=== PATIENT | male | born 1935 | race Caucasian/White ===

== ENCOUNTER 2021-12-11 10:36 | Emergency (ER) | payer MEDICARE ==
[2021-12-11 11:39] LABS: Appearance,Urine Clear (Clear); Bilirubin,Urine Negative (Negative); Blood,Urine Negative (Negative); Color,Urine Yellow; Glucose,Urine (UA) Negative (Negative); Ketones,Urine Negative (Negative); Leukocyte Esterase,Urine Moderate (Negative); Mucus,Urine Moderate /hpf; Nitrite,Urine Negative (Negative); Protein,Urine Trace (Negative); Specific Gravity,Urine 1.028 (1.001-1.035); Squamous Epithelial Cell,Urine <1 /hpf (0-4); Urobilinogen,Urine <2.0 mg/dL (<2.0); WBC,Urine 11 /hpf (0-5)
[2021-12-11 11:46] LABS: Cocaine Screen,Urine Not Detected (NotDetected); Phencyclidine Screen,Urine Not Detected (NotDetected); Urn Cannabinoid Scrn Not Detected (NotDetected)
[2021-12-11 11:47] LABS: Amphetamine Screen,Urine Not Detected (NotDetected); Barbiturate Screen,Urine Not Detected (NotDetected); Benzodiazepines Screen,Urine Detected (NotDetected); Methadone Screen, Urine Not Detected (NotDetected); Opiate Screen,Urine Not Detected (NotDetected); Oxycodone Screen, Urine Not Detected (NotDetected); Tricyclic Antidepressant,Urine Detected (NotDetected)
[2021-12-11 11:51] LABS: Basophils # (A) 0.1 k/uL (0-0.2); Basophils % (A) 1 %; Eosinophils # (A) 0.2 k/uL (0-0.7); Eosinophils % (A) 2 %; HGB 11.9 gm/dL (13.0-17.5); Lymphocytes # (A) 2.2 k/uL (1.0-4.8); Lymphocytes % (A) 23 %; MCH 31.9 pg (25.0-35.0); MCHC 33.1 g/dL (31.0-37.0); MCV 96.2 fL (80.0-100.0); Mean Platelet Volume 7.9; Monocytes # (A) 0.5 k/uL (0-1.0); Monocytes % (A) 6 %; Neutrophils # (A) 6.2 k/uL (1.3-7.7); Neutrophils % (A) 67 %; Platelet Count 221 k/uL (150-450); RBC 3.75 m/uL (4.30-5.90); RDW 14.5 % (11.5-15.5); WBC 9.3 k/uL (3.8-10.6)
[2021-12-11 12:01] LABS: Albumin 3.5 g/dL (3.5-5.0); Calcium 8.5 mg/dL (8.4-10.2); Total Bilirubin 0.5 mg/dL (0.2-1.3); Total Protein 6.5 g/dL (6.3-8.2)
[2021-12-11 12:21] LABS: Potassium 3.6 mmol/L (3.5-5.1)
[2021-12-11 12:35] VITALS: BP 117/66; PULSE 57; RESP 14; TEMP 98
--- NOTE | 2021-12-11 13:03 | ED ---
Altered Mental Status HPI - General Chief Complaint: Altered Mental Status Stated Complaint: altered Time Seen by Provider: 12/11/21 10:55 Source: patient, EMS Mode of arrival: EMS Limitations: altered mental status - History of Present Illness Initial Comments: This 86-year-old male with a history of dementia presenting to the emergency department from his assisted living community for increased aggression. He resides in a memory care unit. Patient has no complaints at this time and states "I think I'm perfectly fine". He was brought by EMS and is a poor historian. She denies chest pain, shortness of breath, cough, abdominal pain, dysuria, dizz iness, fall or head injury, nausea, vomiting, fever, chills, palpitations, diarrhea, constipation, hematuria, hematemesis, hematochezia, hemoptysis. - Related Data Home Medications Medication Instructions Recorded Confirmed ALPRAZolam [Xanax] 0.25 mg PO BID PRN 12/11/21 12/11/21 Ascorbic Acid [Vitamin C] 500 mg PO BID 12/11/21 12/11/21 Cholecalciferol [Vitamin D3 (125 250 mcg PO DAILY 12/11/21 12/11/21 Mcg = 5000 Iu)] Divalproex ER [Depakote ER] 250 mg PO HS 12/11/21 12/11/21 Docusate [Colace] 100 mg PO DAILY PRN 12/11/21 12/11/21 Donepezil [Aricept] 10 mg PO BID 12/11/21 12/11/21 L.acidoph,Paracasei, B.lactis 1 cap PO DAILY 12/11/21 12/11/21 [Probiotic] Melatonin 6 mg PO HS 12/11/21 12/11/21 Memantine [Namenda] 10 mg PO BID 12/11/21 12/11/21 Pyridoxine HCl (Vitamin B6) 100 mg PO DAILY 12/11/21 12/11/21 [Vitamin B-6] QUEtiapine [SEROquel] 25 mg PO HS 12/11/21 12/11/21 Sertraline [Zoloft] 100 mg PO DAILY 12/11/21 12/11/21 Tamsulosin [Flomax] 0.4 mg PO DAILY 12/11/21 12/11/21 Zinc 50 mg PO DAILY 12/11/21 12/11/21 busPIRone HCL 15 mg PO BID 12/11/21 12/11/21 Previous Rx's Medication Instructions Recorded Sulfamethox-Tmp 800-160Mg [Bactrim 1 tab PO Q12HR 10 Days #20 tab 12/11/21 DS 800-160 mg] Allergies Allergy/AdvReac Type Severity Reaction Status Date / Time No Known Allergies Allergy Unverified 12/11/21 12:25 Review of Systems ROS Statement: Those systems with pertinent positive or pertinent negative responses have been documented in the HPI. ROS Other: All systems not noted in ROS Statement are negative. Past Medical History Past Medical History: Unable to Obtain Additional Past Medical History / Comment(s): Not a good historian History of Any Multi-Drug Resistant Organisms: Unobtainable Past Surgical History: Unable to Obtain Past Psychological History: Unable to Obtain Past Alcohol Use History: Unable to Obtain Past Drug Use History: Unable to Obtain General Exam Limitations: altered mental status General appearance: alert, in no apparent distress Head exam: Present: atraumatic, normocephalic, normal inspection Eye exam: Present: normal appearance, PERRL, EOMI. Absent: scleral icterus, conjunctival injection, periorbital swelling Pupils: Present: normal accommodation Neck exam: Present: normal inspection Respiratory exam: Present: normal lung sounds bilaterally. Absent: respiratory distress, wheezes, rales, rhonchi, stridor Cardiovascular Exam: Present: normal rhythm, bradycardia, systolic murmur. Absent: diastolic murmur, rubs, gallop, clicks Course Vital Signs 12/11/21 12:33 Temperature 98.0 F Pulse Rate 57 L Respiratory 14 Rate Blood Pressure 117/66 O2 Sat by Pulse 98 Oximetry - Reevaluation(s) Reevaluation #1: at approximately 12:30 I spoke with the patient's daughter, she explained that he lives in a memory care facility with a nurse who gives him his medications and was confident that he would receive the care needed to be compliant with antibiotics for UTI. 12/11/21 18:52 Reevaluation #2: From approximately 1300 to 1530 patient eloped and a code walker was called. Patient's daughter was notified by RN. Beronica PACHECO was notified. Patient was eventually located by Beronica PACHECO and provided with discharge instructions. 12/11/21 18:53 Medical Decision Making - Medical Decision Making She has an 86-year-old male with a history of dementia presenting with her mental status. The memory care unit that he lives on states that he was exhibiting increased aggression this morning. He arrived via EMS, and stated th at "I don't believe there is anything wrong with me". He denied chest pain, shortness of breath, recent fall or head injury, dysuria, abdominal pain, fever, chills. Exam was unremarkable. UA is positive for UTI. Elevated BUN, likely due to dehydration. He spoke with his daughter who informed me that he receives his medications from a nurse at the memory care unit and would be able to be compliant with antibiotic treatment outpatient. From approximately 1300 to 1530, patient eloped and Beronica PACHECO was notified. He was located by Beronica PACHECO and brought back for his formal discharge. His medication was sent to the [facility] pharmacy on file, Bactrim double strength 2 times a day for 10 days. Take medication as prescribed. Follow-up with PCP in one to 2 days. Report back to ER with worsening symptoms or new onset alarming symptoms. Patient was agreeable to the plan. - Lab Data Result diagrams: 12/11/21 11:13 12/11/21 11:13 Lab Results 12/11/21 12/11/21 12/11/21 Range/Units 11:13 11:13 11:13 WBC 9.3 (3.8-10.6) k/uL RBC 3.75 L (4.30-5.90) m/uL Hgb 11.9 L (13.0-17.5) gm/dL Hct 36.0 L (39.0-53.0) % MCV 96.2 (80.0-100.0) fL MCH 31.9 (25.0-35.0) pg MCHC 33.1 (31.0-37.0) g/dL RDW 14.5 (11.5-15.5) % Plt Count 221 (150-450) k/uL MPV 7.9 Neutrophils % 67 % Lymphocytes % 23 % Monocytes % 6 % Eosinophils % 2 % Basophils % 1 % Neutrophils # 6.2 (1.3-7.7) k/uL Lymphocytes # 2.2 (1.0-4.8) k/uL Monocytes # 0.5 (0-1.0) k/uL Eosinophils # 0.2 (0-0.7) k/uL Basophils # 0.1 (0-0.2) k/uL Sodium 143 (137-145) mmol/L Potassium 3.6 (3.5-5.1) mmol/L Chloride 108 H (98-107) mmol/L Carbon Dioxide 30 (22-30) mmol/L Anion Gap 5 mmol/L BUN 21 H (9-20) mg/dL Creatinine 1.14 (0.66-1.25) mg/dL Est GFR (CKD-EPI)AfAm 67 (>60 ml/min/1.73 sqM) Est GFR (CKD-EPI)NonAf 58 (>60 ml/min/1.73 sqM) Glucose 119 H (74-99) mg/dL Calcium 8.5 (8.4-10.2) mg/dL Total Bilirubin 0.5 (0.2-1.3) mg/dL AST 24 (17-59) U/L ALT 20 (4-49) U/L Alkaline Phosphatase 69 (38-126) U/L Ammonia <9 (<30) umol/L Total Protein 6.5 (6.3-8.2) g/dL Albumin 3.5 (3.5-5.0) g/dL Urine Color Urine Appearance (Clear) Urine pH (5.0-8.0) Ur Specific [place] (1.001-1.035) Urine Protein (Negative) Urine Glucose (UA) (Negative) Urine Ketones (Negative) Urine Blood (Negative) Urine Nitrite (Negative) Urine Bilirubin (Negative) Urine Urobilinogen (<2.0) mg/dL Ur Leukocyte Esterase (Negative) Urine WBC (0-5) /hpf Ur Squamous Epith Cells (0-4) /hpf Urine Mucus (None) /hpf Urine Opiates Screen (NotDetected) Ur Oxycodone Screen (NotDetected) Urine Methadone Screen (NotDetected) Ur Propoxyphene Screen (NotDetected) Ur Barbiturates Screen (NotDetected) U Tricyclic Antidepress (NotDetected) Ur Phencyclidine Scrn (NotDetected) Ur Amphetamines Screen (NotDetected) U Methamphetamines Scrn (NotDetected) U Benzodiazepines Scrn (NotDetected) Urine Cocaine Screen (NotDetected) U Marijuana (THC) Screen (NotDetected) 12/11/21 Range/Units 11:23 WBC (3.8-10.6) k/uL RBC (4.30-5.90) m/uL Hgb (13.0-17.5) gm/dL Hct (39.0-53.0) % MCV (80.0-100.0) fL MCH (25.0-35.0) pg MCHC (31.0-37.0) g/dL RDW (11.5-15.5) % Plt Count (150-450) k/uL MPV Neutrophils % % Lymphocytes % % Monocytes % % Eosinophils % % Basophils % % Neutrophils # (1.3-7.7) k/uL Lymphocytes # (1.0-4.8) k/uL Monocytes # (0-1.0) k/uL Eosinophils # (0-0.7) k/uL Basophils # (0-0.2) k/uL Sodium (137-145) mmol/L Potassium (3.5-5.1) mmol/L Chloride (98-107) mmol/L Carbon Dioxide (22-30) mmol/L Anion Gap mmol/L BUN (9-20) mg/dL Creatinine (0.66-1.25) mg/dL Est GFR (CKD-EPI)AfAm (>60 ml/min/1.73 sqM) Est GFR (CKD-EPI)NonAf (>60 ml/min/1.73 sqM) Glucose (74-99) mg/dL Calcium (8.4-10.2) mg/dL Total Bilirubin (0.2-1.3) mg/dL AST (17-59) U/L ALT (4-49) U/L Alkaline Phosphatase (38-126) U/L Ammonia (<30) umol/L Total Protein (6.3-8.2) g/dL Albumin (3.5-5.0) g/dL Urine Color Yellow Urine Appearance Clear (Clear) Urine pH 6.0 (5.0-8.0) Ur Specific [place] 1.028 (1.001-1.035) Urine Protein Trace H (Negative) Urine Glucose (UA) Negative (Negative) Urine Ketones Negative (Negative) Urine Blood Negative (Negative) Urine Nitrite Negative (Negative) Urine Bilirubin Negative (Negative) Urine Urobilinogen <2.0 (<2.0) mg/dL Ur Leukocyte Esterase Moderate H (Negative) Urine WBC 11 H (0-5) /hpf Ur Squamous Epith Cells <1 (0-4) /hpf Urine Mucus Moderate H (None) /hpf Urine Opiates Screen Not Detected (NotDetected) Ur Oxycodone Screen Not Detected (NotDetected) Urine Methadone Screen Not Detected (NotDetected) Ur Propoxyphene Screen Not Detected (NotDetected) Ur Barbiturates Screen Not Detected (NotDetected) U Tricyclic Antidepress Detected H (NotDetected) Ur Phencyclidine Scrn Not Detected (NotDetected) Ur Amphetamines Screen Not Detected (NotDetected) U Methamphetamines Scrn Not Detected (NotDetected) U Benzodiazepines Scrn Detected H (NotDetected) Urine Cocaine Screen Not Detected (NotDetected) U Marijuana (THC) Screen Not Detected (NotDetected) Disposition Clinical Impression: UTI (urinary tract infection), AMS (altered mental status) Disposition: HOME SELF-CARE Condition: Good Instructions (If sedation given, give patient instructions): Urinary Tract Infection in Men (DC), Altered Mental Status (ED) Additional Instructions: Take medication as prescribed. Medication was sent to [facility] pharmacy on file. Follow-up with primary care in 1-2 days. Report back to ER with worsening symptoms or new onset alarming symptoms, including but not limited to increased confusion, chest pain, shortness of breath, abdominal pain, flank pain, fever, chills, vomiting. Prescriptions: Sulfamethox-Tmp 800-160Mg [Bactrim DS 800-160 mg] 1 tab PO Q12HR 10 Days #20 tab Is patient prescribed a controlled substance at d/c from ED?: No Referrals: Leonel Rosas MD [Primary Care Provider] - 1-2 days Time of Disposition: 15:34
== END 2021-12-11 15:33 | disposition home or self-care (01) ==
LOC: EC 10:36
DX: R41.82 Altered mental status, unspecified (principal); N39.0 Urinary tract infection, site not specified
CPT/HCPCS: 36415; 80053; 80306; 81001; 82140; 85025; 87086; 99284